=== PATIENT | male | born 1990 | race Caucasian/White ===

== ENCOUNTER 2018-03-08 17:52 | Emergency (ER) | payer OTHER, SELFPAY ==
[2018-03-08 17:53] VITALS: BP 130/79; PULSE 77; RESP 16; TEMP 36.9; O2SAT 94; BMI 35.6
--- NOTE | 2018-03-08 18:41 | ED.DCSUM_ITS ---
- ER Visit Summary Date of Service: 03/08/18 Chief Complaint: Rash History of Present Illness: The patient is a [address] stein. He reports that he got poison sara 6 days ago. Reports that he is on his fourth day of prednisone and it is not improving. Is become much more purple in color today. He states that it itches and is weeping. He denies any fever or chills. He denies any other complaints. Physical Examination: Vitals: Stable. Afebrile. General: Well-nourished and well-developed. Head: Normocephalic atraumatic. Neck: Supple, no lymphadenopathy. No JVD. Nontender. Cardiovascular: Regular rate and rhythm. No murmurs. Respiratory: No respiratory distress. Clear to auscultation bilaterally. Abdominal: Soft, nontender, nondistended, normal bowel sounds. No guarding, rebound, or peritoneal signs. Back: Nontender. Extremities: Nontender, no edema. Skin: Weeping vesicular lesions that are worse over the anterior surface of his right ankle. These are scattered over his left leg and left forearm. There is no evidence of infection. Neurologic: Alert and oriented ?3. Cranial nerves II through XII are intact. Normal strength and sensation. Psych: Normal affect. Emergency Department Course and Treatment: Patient was treated with Kenalog IM. Treatment Plan: Patient be discharged instructions use calamine lotion. Follow- up with his primary care physician in 10-14 days if not improving. Return to the emergency department for any worsening symptoms. Disposition: To home in improved and stable condition. Impression: 1. Poison sara dermatitis. This note was generated with [employer] dictation software. It may contain incorrect words, spelling, and punctuation that were not noted in review of the chart prior to signing ED Disposition - Plan for ED Patient: Chief Complaint: Wound Check Instructions: ED Dermatitis Poison Sara Referrals: Patrick Weaver PA [Primary Care Provider] - 10-14 Days if not better
[2018-03-08] MEDS: Triamcinolone Acetonide 40 MG/ML Vial 80 MG IM (19:16)
[2018-03-08 19:17] VITALS: BP 132/74; PULSE 75; RESP 14; O2SAT 99
== END 2018-03-08 19:18 | disposition home or self-care (01) ==
PROVIDERS: Emergency Provider Emergency Medicine; Family Provider Physician Assistant; PCP Physician Assistant
DX: L23.7 Allergic contact dermatitis due to plants, except food (principal)
CPT/HCPCS: 96372; 99283

== ENCOUNTER 2020-12-18 08:16 | Emergency (ER) | payer OTHER, SELFPAY ==
[2020-12-18 08:18] VITALS: BP 122/81; PULSE 69; RESP 16; TEMP 36.2; O2SAT 99; BMI 38.0
--- NOTE | 2020-12-18 08:24 | EX.ED.DYSGE1 ---
HPI History of Present Illness Chief Complaint: Rash Informant: patient Onset/Context/Timing Onset: Days Context: Gradual Onset Current Severity: Mild Maximum Severity: Mild Narrative Narrative: Patient is a healthy 30-year-old male who presents to the emergency department blistering rash. Patient states he was doing yard work on Thursday. He states noticed Thursday night that he had a small area of itching. Since then, it spread to involve his whole arm. He states that he had some blistering with yellow fluid coming from it. He denies fevers or chills. He has been using topical ointments with little improvement. He has no history of immunosuppression. Prior similar symptoms: No Recent Illness/Hospitalization: No PFSH PFSH Home Medications cephalexin 500 mg PO Q12 #14 capsule 12/18/20 [Rx Last Taken Unknown] prednisone 10 mg PO DAILY #48 tablet 12/18/20 [Rx Last Taken Unknown] Allergy/AdvReac Type Severity Reaction Status Date / Time No Known Allergies Allergy Verified 03/08/18 17:53 Social History Smoking Status: Never smoker ROS ROS ED Constitutional Constitutional ED: Denies chills or fever(s) Eyes Eyes: Denies blurry vision or change in vision ENT ENT ED: Denies ear pain or sore throat Cardiovascular Cardiovascular: Denies chest pain or palpitations Respiratory/Chest Respiratory/Chest: Denies cough, dyspnea or dyspnea on exertion Gastrointestinal Gastrointestinal: Denies abdominal pain, nausea or vomiting Genitourinary Genitourinary ED: Denies dysuria or urinary frequency Musculoskeletal Musculoskeletal: Denies arthralgias or myalgias Integumentary Reports rash Neurologic Neurologic: Denies headache(s) or paresthesias Psychiatric Psychiatric: Denies anxiety or depression Endocrine Endocrinology: Denies polydipsia or polyuria Allergic/Immunologic Allergic/Immunologic ED: Denies urticaria EXAM Physical Exam Const Vital Signs: 12/18/20 08:18 Temperature 97.1 F L Temperature Source Temporal Pulse Rate 69 Respiratory Rate 16 Blood Pressure 122/81 H Blood Pressure Mean 94 Pulse Ox 99 Oxygen Delivery Method Room Air Positive well nourished and well developed General Appearance ED: well developed HEENT Reports normocephalic, head/scalp atraumatic and moist mucous membranes Eyes PERRL and EOMs intact bilaterally Neck no lymphadenopathy and supple General: Negative for tenderness Chest Wall inspection of chest normal Resp normal respiratory effort and clear to auscultation bilaterally Cardio regular rate, regular rhythm and no murmurs GI normal to inspection, nondistended, normoactive bowel sounds Palpation: Negative for tender, guarding or rebound tenderness present Back/Spine no CVA tenderness Cervical Spine: Negative for cervical spine tenderness Thoracic Spine / Upper Back: Negative for thoracic spinal tenderness Extremity Negative for normal to inspection Extremity Narrative: Patient does have blistering rash consistent with contact dermatitis. There are some yellow bullae and some elevation of the leading edge. I am concerned for secondary infection with strep. Does not well the face of the chest. General Extremety ED: Negative for tenderness Neuro oriented x3 and CN's II-XII intact bilaterally Neuro Narrative: No focal deficits appreciated. Sensorium / Orientation: alert Psych mental status grossly normal Skin no wounds and skin turgor normal MDM MDM MDM Narrative Medical decision making narrative: Patient presents with rash. It is consistent with contact dermatitis likely from poison sara or poison oak. I am going to place him on a prednisone burst. The patient also be placed on Keflex given the change in color of the bullae. He is not febrile. There is no streaking. There is no crepitus. He is very well-appearing. I do feel that he is safe for outpatient therapy. Impression 1. Poison sara right arm Discharge Plan Triage Chief Complaint: Rash ED Provider: Terry Betancourt Dx/Rx/DC Orders Instructions: ED Poison Sara Rash Prescriptions: New prednisone 10 MG tablet 10 mg PO DAILY Qty: 48 RF: 0 cephalexin [cephalexin] 500 MG capsule 500 mg PO Q12 Qty: 14 RF: 0 Primary Care Provider: Jose Ramos Referrals: Jose Ramos MD [Primary Care Provider] -
== END 2020-12-18 08:46 | disposition home or self-care (01) ==
LOC: ED 08:37
PROVIDERS: Emergency Provider Emergency Medicine; PCP Family Medicine
DX: L23.7 Allergic contact dermatitis due to plants, except food (principal)
CPT/HCPCS: 99282

== ENCOUNTER 2022-04-08 19:02 | Emergency (ER) | payer OTHER, SELFPAY ==
[2022-04-08 19:03] VITALS: BP 131/86; PULSE 123; RESP 16; TEMP 37.6; O2SAT 93; BMI 37.8
--- NOTE | 2022-04-08 19:21 | EX.ED.VIS.UR ---
HPI HPI - URI History of Present Illness Chief Complaint: Cough Detail of Chief Complaint: Nonproductive cough, wheezing, upper respiratory infectious symptoms Informant: patient Onset/Context/Timing Onset: Hours Context: Sudden Onset Timing: Continuous Quality: Upper respiratory infectious symptoms per HPI narrative Location: Respiratory Current Severity: Mild Maximum Severity: Moderate Worsened by: Not Worsened By Swallowing, Eating Solids or Drinking Liquids Relieved by: Not Relieved By Tylenol or NSAIDs Associated Symptoms Associated Symptoms: Positive for Nasal Congestion, Shortness of Breath and Nonproductive cough; Negative for Headache, Sinus Pressure, Myalgias, Nausea, Vomiting, Diarrhea or Chest Pain Narrative Narrative: Patient is a 31-year-old non-smoker who presents with upper respiratory tract infection symptoms that started several hours prior to presentation. He had asthma as a child. He does not have an inhaler. He denies documented fever. Denies headache. Does report congestion, rhinorrhea, postnasal drainage and sore throat. His cough is nonproductive. He denies chest pain. He denies GI symptoms. He denies myalgias arthralgias. He denies ill contacts. Prior similar symptoms: No Recent Illness/Hospitalization: No ROS ROS ED Constitutional Constitutional ED: Reports fever(s) and subjective; Denies chills or sweats Eyes Eyes: Denies blurry vision, change in vision or diplopia ENT ENT ED: Reports rhinorrhea and sore throat; Denies ear pain Cardiovascular Cardiovascular: Denies chest pain, palpitations, paroxysmal nocturnal dyspnea or racing heartbeat Respiratory/Chest Respiratory/Chest: Reports cough, dyspnea, dyspnea on exertion and other Details: Wheezing ; Denies paroxysmal nocturnal dyspnea Gastrointestinal Gastrointestinal: Denies abdominal pain, nausea or vomiting Musculoskeletal Musculoskeletal: Denies arthralgias, back pain, myalgias or neck pain Integumentary Denies Abrasions or rash Neurologic Neurologic: Denies headache(s) PFSH PFSH Medical History no medical history no medical history (Asthma as a child) Home Medications cephalexin 500 mg capsule 500 mg PO Q12 #14 CAPSULES 12/18/20 [Rx Last Taken Unknown] prednisone 10 mg tablet 10 mg PO DAILY #48 TABLETS 12/18/20 [Rx Last Taken Unknown] albuterol sulfate 90 mcg/actuation aerosol inhaler (Ventolin HFA) 2 puff inhalation Q4H PRN PRN Wheezing ##1 04/08/22 [Rx Last Taken Unknown] prednisone 20 mg tablet 60 mg PO DAILY #12 TABLETS 04/08/22 [Rx Last Taken Unknown] Allergy/AdvReac Type Severity Reaction Status Date / Time No Known Allergies Allergy Verified 04/08/22 19:03 Surgical History no surgical history no surgical history Social History (Updated 04/08/22 @ 19:[address] Josue An MD) Smoking Status: Never smoker alcohol intake: current alcohol intake frequency: holidays/special occasions only substance use type: does not use EXAM Physical Exam Const Vital Signs: 04/08/22 19:03 Temperature 99.7 F H Temperature Source Temporal Pulse Rate 123 H Respiratory Rate 16 Blood Pressure 131/86 H Blood Pressure Mean 101 Pulse Ox 93 Oxygen Delivery Method Room Air Positive well nourished, well developed and obese Constitutional Narrative: Patient appears ill but not toxic. General Appearance ED: well developed; Negative for cyanotic, diaphoretic or pallor Nutritional Appearance: obese HEENT Reports moist mucous membranes HEENT Narrative: Nares patent with slight clear drainage. Posterior pharynx Microport anterior nasal drainage. Uvula midline. No erythema or exudate. normocephalic and atraumatic Eyes PERRL and EOMs intact bilaterally General Eye ED: Negative for pale conjunctiva or scleral icterus Neck no lymphadenopathy, supple, no meningeal signs and no JVD Resp normal respiratory effort and clear to auscultation bilaterally Cardio S1 normal heart sound, S2 normal heart sound and no murmurs Rate: tachycardic Rhythm: regular rhythm Back/Spine no CVA tenderness Extremity normal to inspection and full ROM Neuro oriented x3 and CN's II-XII intact bilaterally Sensorium / Orientation: alert Psych mental status grossly normal Skin General Skin Exam: Negative for jaundice or pallor Lesions: no lesions Rashes: no rashes MDM MDM MDM Narrative Medical decision making narrative: Patient has upper respiratory symptoms started several hours ago. This consistent with viral illness. He does have bronchospasm due to the acute bronchitis. He was treated with prednisone and albuterol MDI. Imaging was not indicated. Laboratory studies are not indicated. Discharge Plan Triage Chief Complaint: Cough ED Provider: Josue An Dx/Rx/DC Orders Clinical Impression: Acute bronchitis with bronchospasm Prescriptions: New prednisone 20 mg tablet 60 mg PO DAILY Qty: 12 0RF albuterol sulfate [Ventolin HFA] 90 mcg/actuation HFA aerosol inhaler 2 puff inhalation Q4H PRN PRN (Reason: Wheezing) Qty: 1 0RF No Action prednisone 10 MG tablet 10 mg PO DAILY Qty: 48 0RF Rx Instructions: 6 po qd x 3 days, 4 po qd x 3 days, 2 po qd x 3 days, 1 po qd x 3 days cephalexin [cephalexin] 500 MG capsule 500 mg PO Q12 Qty: 14 0RF Primary Care Provider: Care Physician,No Primary Referrals: Jose Ramos MD [Non-Staff] - 1 Week if not improving Disposition Disposition: Home, Self Care
[2022-04-08 19:27] VITALS: RESP 18
[2022-04-08] MEDS: predniSONE 20 MG Tablet 60 MG PO (19:55)
== END 2022-04-08 20:02 | disposition home or self-care (01) ==
PROVIDERS: Emergency Provider Emergency Medicine; Visit Provider Emergency Medicine
DX: J20.9 Acute bronchitis, unspecified (principal); J02.9 Acute pharyngitis, unspecified; R06.2 Wheezing; R05.9 Cough, unspecified; R06.00 Dyspnea, unspecified; Z79.52 Long term (current) use of systemic steroids
CPT/HCPCS: 99283

== ENCOUNTER → 2025-06-01 | Outpatient (CLI) | payer OTHER, SELFPAY | END | disposition home or self-care (01) | LOC: SL 09:24 | PROVIDERS: Referring Provider Nurse Practitioner Adult Health; Visit Provider Nurse Practitioner Adult Health | DX: R06.81 Apnea, not elsewhere classified (principal); R06.83 Snoring | CPT/HCPCS: 95806 ==